=== PATIENT | female | born 1950 | race Caucasian/White ===

== ENCOUNTER → 2017-12-31 | Outpatient (CLI) | payer MEDICARE, MEDICAID ==
[~2017-12-31] MED LIST: ASPIRIN E.C. 8181 MG PO; BUPROPRION PO; CALCIUM + D 5001 TAB PO; CLONAZEPAM0.5 MG PO; COZAAR100 MG PO; DILANTIN 100MG100 MG PO; FLEXERIL 1010 MG/TAB PO; FLEXERIL10 MG PO; HCTZ 25MG TAB25 MG PO; HCTZ 25MG25 MG PO; LAMICTAL 100MG100 MG PO; MELOXICAM15 MG PO; METOPROLOL TART25 MG PO; MOBIC15 MG PO; NEURONTIN300 MG/CAP PO; TOPROL XL 50MG50 MG PO; VICODIN 5/5001 UDTAB PO
== END ==
LOC: COL.CARD 07:24
DX: R42 Dizziness and giddiness (principal); R53.1 Weakness